=== PATIENT | female | born 1935 | race Two or more races ===

== ENCOUNTER 2017-05-18 12:20 | Inpatient (IN) | payer MEDICARE, MEDICAID ==
[~2017-05-18] VITALS: Ht 160 cm; Wt 77.1 kg
[~2017-05-18 12:20] MED LIST: ALPR0.5T PO; AMLO5TAB2 PO; ASPI-605 PO; ATEN25TA PO; CELE200C PO; CLON0.1T PO; DEXL60CA3 PO; DOCU-270 PO; ERGO50003 PO; LOSA100T15 PO; METO50TA3 PO; RANO500T3 PO; TRAM50TA2 PO; VALS320T2 PO
--- NOTE | 2017-05-18 12:30 | NUR ---
BIB DTR FROM HOME DT MID ABDOMINAL PAIN, 5/10, NON RADIATING SINCE THIS AM. LAST BOWEL MOVEMENT THIS AM. DENIES NAUSEA AND VOMITTING. SKIN IS WARM TO TOUCH AND NON DIAPHORETIC. PATIENT IS AFEBRILE. VSS. CONNCTED PATIENT TO TELE MONITOR.PENDING MD EVALUATION
[2017-05-18] MEDS ORDERED: IV NS 0.9% 1,000 ML BAG IV ONE (13:00)
--- NOTE | 2017-05-18 13:15 | NUR ---
IV ACCESS STARTED. PT MEDICATED ORDERED.
[2017-05-18] MEDS ORDERED: ONDANSETRON HCL/PF 4 MG/2 ML VIAL ONE ×2 (13:24→22:32)
[2017-05-18] MEDS ORDERED: MORPHINE SULFATE INJ 4 MG/ML DISP.SYRIN ONE ×2 (13:25→14:27)
[2017-05-18 13:29] LABS: BASOPHILS % (AUTO) 0.4 % (0.0-2.0); EOSINOPHILS % (AUTO) 0.2 % (0.0-6.0); HEMATOCRIT 37 % (33-45); HEMOGLOBIN 12.6 g/dL (11.5-14.8); LYMPHOCYTES # (AUTO) 0.9 /CMM (0.8-4.8); MEAN CORPUSCULAR HEMOGLOBIN 30 PG (26.0-33.0); MEAN CORPUSCULAR HGB CONC 34 g/dl (31.0-36.0); MEAN CORPUSCULAR VOLUME 90 fL (82-100); MONOCYTES # (AUTO) 0.5 /CMM (0.1-1.30); MONOCYTES % (AUTO) 10.7 % (2.0-12.0); NEUTROPHILS # (AUTO) 3.3 /CMM (1.8-8.9); NEUTROPHILS % (AUTO) 68.7 % (43.0-81.0); PLATELET COUNT (AUTO) 177 /CMM (150-450); RDW COEFFICIENT OF VARIATION 13.4 (11.5-15.0); RED BLOOD CELL COUNT(AUTO) 4.16 MIL/uL (4.0-5.2); WHITE BLOOD COUNT (AUTO) 4.7 K/uL (4.3-11.0)
[2017-05-18 13:30] LABS: APPEARANCE,URINE Clear (CLEAR); BILIRUBIN,URINE Negative (NEGATIVE); BLOOD, URINE Trace-lysed Ery/uL (NEGATIVE); COLOR,URINE Yellow (YELLOW); KETONES,URINE Negative (NEGATIVE); LEUKOCYTE ESTERASE ,URINE Negative (NEGATIVE); NITRITE, URINE Negative (NEGATIVE); PROTEIN,URINE Negative (NEGATIVE); UGLUCOSE Negative (NEGATIVE); UROBILINOGEN,URINE 0.2 EU/dL (0.2)
[2017-05-18] MEDS ORDERED: ONDANSETRON HCL/PF 4 MG/2 ML VIAL IVP ONE (13:30)
[2017-05-18] MEDS ORDERED: MORPHINE SULFATE INJ 2 MG/ML DISP.SYRIN IV ONE ×2 (13:30→14:30)
[2017-05-18 13:37] LABS: BACTERIA,URINE None seen /HPF (None Seen); RBC,URINE 0-2 /HPF (0-2); SQUAMOUS EPITHELIAL CELL,UR Few /HPF (None Seen); WBC,URINE 0-3 /HPF (0-3)
[2017-05-18 13:37] LABS: CALCIUM, SERUM 9.1 mg/dL (8.5-10.1); CARBON DIOXIDE 29 mmol/L (21-32); CHLORIDE 104 mmol/L (98-107); GLUCOSE 87 mg/dL (74-106); POTASSIUM 4.3 mmol/L (3.5-5.1); SODIUM SERUM 141 mmol/L (136-145); UREA NITROGEN, BLOOD 37 mg/dL (7-18)
--- NOTE | 2017-05-18 13:40 | NUR ---
PT TAKEN TO CT.
[2017-05-18 13:42] LABS: INR 1.01 (0.87-1.13); PROTHROMBIN TIME 10.5 SECS (9.5-12.7)
[2017-05-18 13:44] LABS: ALANINE AMINOTRANSFERASE 16 U/L (12-78); ALKALINE PHOSPHATASE 64 U/L (46-116); ASPARTATE AMINOTRANSFERASE 23 U/L (15-37); BILIRUBIN,DIRECT 0.1 mg/dL (0.0-0.2); BILIRUBIN,TOTAL 0.4 mg/dL (0.2-1.0); LIPASE 212 U/L (73-393); TOTAL PROTEIN, SERUM 7.1 g/dL (6.4-8.2)
[2017-05-18] MEDS ORDERED: FLUT1DIS3 IH (16:03)
[2017-05-18] MEDS ORDERED: AZEL6DRO5 EACHEYE (16:03)
[2017-05-18] MEDS ORDERED: MEMA28CA PO (16:03)
[2017-05-18] MEDS ORDERED: RIVA1PAT3 TP (16:03)
[2017-05-18] MEDS ORDERED: AMIO200T2 PO (16:03)
[2017-05-18] MEDS ORDERED: FURO40TA5 PO (16:03)
[2017-05-18] MEDS ORDERED: GABA-532 PO (16:03)
[2017-05-18] MEDS ORDERED: ZOLP10TA2 PO (16:03)
[2017-05-18] MEDS ORDERED: ICOS1CAP PO (16:03)
[2017-05-18] MEDS ORDERED: IBAN150T PO (16:03)
[2017-05-18] MEDS ORDERED: LINA145C PO (16:03)
[2017-05-18] MEDS ORDERED: NITR0.4T6 SL (16:03)
[2017-05-18] MEDS ORDERED: PANTOPRAZOLE 40 MG VIAL ONE (16:27)
[2017-05-18] MEDS ORDERED: PANTOPRAZOLE 40 MG VIAL IV ONE (16:30)
--- NOTE | 2017-05-18 16:39 | NUR ---
REPORT GIVEN TO ANNABELLE JIN FOR MS ROOM 309-1.
[2017-05-18 17:00] VITALS: BP 141/82
--- NOTE | 2017-05-18 17:00 | NUR ---
MS MATERIAL CONTROL ASSOCIATE NOTE PATIENT IS ALERT AND ORIENTED x3. NO PAIN AT THIS TIME. NO SOB OR DISTRESS NOTED, 02 SAT AT 93% ON ROOM AIR. DAUGHTER AT BEDSIDE. PORTUGUESE/UZBEK SPEAKING. AMBULATORY WITH WALKER. LEFT AC 20 G INTACT AND PATENT NO REDNESS OR SWELLING NOTED, FLUSHES WELL. ABLE TO COMMUNICATE NEEDS. ALL BELONGINGS WITH DAUGHTER. SHOES AT BEDSIDE & CELL-PHONE, AND DOCUMENTED. PRESENTED TO THE ER WITH ABDOMINAL PAIN FOR MORE THAN A WEEK. VITAL SIGNS - AGENCY SALES DIRECTOR: 141/82, T:98.4, 02:93%, P:70. CALL LIGHT WITHIN REACH. SAFETY MEASURES IMPLEMENTED. WILL CONTINUE TO MONITOR
[2017-05-18] MEDS ORDERED: IV NS 0.9% 1,000 ML IV PRN (19:00)
--- NOTE | 2017-05-18 19:00 | NUR ---
RN NOTE REPORTED TO PHARMACY PT.'S DAUGHTER SAID THAT SHE WILL NOT BE ABLE TO PROVIDE PT.'S HOME MEDICATIONS.
--- NOTE | 2017-05-18 19:00 | NUR ---
RN NOTES PATIENT IN BED, ALERT AND ORIENTED X3, CALM, NO SOB, NO RESPIRATORY DISTRESS, KINYARWANDA SPEAKING, UNDERSTANDS LITTLE DIVEHI. LEFT AC PERIPHERAL LINE IS PATENT AND INFUSING WELL. PER ENDORSEMENT, FOR EGD TONIGHT, CONSENTS AND CHECKLIST DONE, SISTER AT THE BEDSIDE.
--- NOTE | 2017-05-18 19:30 | NUR ---
RN CLOSING NOTE PATIENT IS A&Ox3. DAUGHTER AT BEDSIDE. GERMAN/DOMINICAN SPEAKING. PT. WAS SEEN AND EXAMINED BY DR. DOSS, AND DR. ASH. PER DR. DOSS EGD WAS RECOMMENDED. PT.'S DAUGHTER WAS PROVIDED EDUCATION ON EGD PROCEDURE, VERBALIZED UNDERSTANDING AND GAVE CONSENT. SIGNED CONSENT IS IN PT. CHART. NO S/S OF ACUTE DISTRESS. NO SOB, AND BREATHING UNLABORED ON ROOM AIR. AMBULATORY WITH WALKER AT BEDSIDE. IV FLUIDS RUNNING AT 75 ML/HR. BED IS IN LOWEST POSITION, 2 SIDE RAILS UP AND CALL LIGHT WITHIN REACH. WILL ENDORSE PT. SURGICAL PACKET CHECKLIST TO NURSE.
--- NOTE | 2017-05-18 19:45 | NUR ---
PATIENT PICKED UP FOR EGD. ALERT AND ORIENTED X3, NO SOB, NOT IN DISTRESS.
[2017-05-18 20:00] VITALS: BP 179/92
--- NOTE | 2017-05-18 20:48 | NUR ---
RN NOTES PATIENT CAME BACK FROM EGD PROCEDURE IN STABLE CONDITION WITH V/S OF 151/90 HR 75 TEMP 98.6 RR 18. COMPLAINING OF ABDOMINAL DISCOMFORT. RECEIVED NEW ORDER OF PROTONIX 40 MG PO QD AND ADVANCED DIET TOLERATED, ON CLEAR LIQUID DIET FOR NOW. GIVEN SIPS OF WATER, TOLERATED WELL.
[2017-05-18] MEDS: AZELASTINE HCL EACHEYE SCH (21:00)
[2017-05-18] MEDS ORDERED: ACETAMINOPHEN 325 MG TABLET PO PRN (22:30)
[2017-05-18] MEDS ORDERED: ACETAMINOPHEN 325 MG TABLET ONE (22:32)
[2017-05-18] MEDS: ONDANSETRON HCL/PF 4 MG/2 ML VIAL IV PRN (22:35)
--- NOTE | 2017-05-18 23:00 | NUR ---
RN NOTES GRAND DAUGHTER AT THE BEDSIDE, PER TRANSLATION, PATIENT COMPLAINING OF ESOPHAGEAL DISCOMFORT. EXPLAINED TO PATIENT VIA GRAND DAUGHTER HAD EGD AT 1930, ESOPHAGEAL DISCOMFORT IS EXPECTED. REPOSITIONED FOR COMFORT, CALL LIGHT WITHIN REACH.
--- NOTE | 2017-05-19 01:09 | NUR ---
RN NOTES COMPLAINING OF HEADACHE AND NAUSEA. NOTIFIED DR. TUTTLE, NEW ORDER OF TYLENOL 650 MG PO Q6HRS PRN AND ZOFRAN 4 MG IVP Q4HRS PRN.
[2017-05-19] MEDS ORDERED: SIMETHICONE 80 MG TAB.CHEW PO PRN (02:30)
[2017-05-19] MEDS ORDERED: ONDANSETRON HCL/PF 4 MG/2 ML VIAL ONE (03:34)
[2017-05-19] MEDS: ONDANSETRON HCL/PF 4 MG/2 ML VIAL IV PRN ×2 (03:36→09:07)
--- NOTE | 2017-05-19 03:39 | NUR ---
RN NOTES COMPLAINING OF NAUSEA, GIVEN ZOFRAN 4 MG IVP PRN, KEPT ON HIGH MEDINA'S, REPOSITIONED FOR COMFORT.
--- NOTE | 2017-05-19 05:05 | NUR ---
PATIENT IS RESTING COMFORTABLY AFTER ZOFRAN GIVEN,
--- NOTE | 2017-05-19 06:48 | NUR ---
PATIENT RESTING COMFORTABLY IN BED, NO DISTRESS, RESPIRATION EVEN AND UNLABORED, NO COMPLAIN OF ABDOMINAL PAIN, AND N/V, GIVEN ZOFRAN 4MG IVP X2 DURING SHIFT, ASSISTED TO BATHROOM, LEFT AC PERIPHERAL LINE IS PATENT AND INFUSING WELL, NEEDS ATTENDED, CALL LIGHT WITHIN REACH
[2017-05-19] MEDS ORDERED: PANTOPRAZOLE 40 MG TABLET.DR PO SCH (07:30)
--- NOTE | 2017-05-19 08:00 | NUR ---
MS RN NOTES PATIENT IN BED RESTING NO SOB OR ACUTE DISTRESS NOTED. BED IN LOW LOCKED POSITION. CALL LIGHT WITHIN REACH. PERIPHERAL IV ON LEFT AC INTACT PATENT. RUNNING PRESCRIBED FLUIDS. PATIENT DENIES ANY NAUSEA AT THIS MOMENT. WILL CONTINUE TO MONITOR.
[2017-05-19] MEDS ORDERED: MEMANTINE HCL 5 MG TABLET PO SCH (09:00)
[2017-05-19] MEDS ORDERED: CLONIDINE HCL 0.1 MG TABLET PO SCH (09:00)
[2017-05-19] MEDS ORDERED: ALPRAZOLAM 0.5 MG TABLET PO SCH (09:00)
[2017-05-19] MEDS ORDERED: (Linaclotide (Linzess) 145 MCG) PO SCH (09:00)
[2017-05-19] MEDS ORDERED: AMIODARONE HCL 200 MG TABLET PO SCH (09:00)
[2017-05-19] MEDS: AZELASTINE HCL EACHEYE SCH (09:00)
[2017-05-19] MEDS ORDERED: RIVASTIGMINE TARTRATE 4.6 MG PATCH.TD24 TD SCH (09:00)
[2017-05-19] MEDS ORDERED: (Icosapent Ethyl (Vascepa) 2 GM) PO SCH (09:00)
[2017-05-19] MEDS ORDERED: DEXLANSOPRAZOLE 60 MG PO SCH (09:00)
[2017-05-19] MEDS ORDERED: FLUTICASONE/VILANTEROL 1 EACH BLST.W.DEV IH SCH (09:00)
[2017-05-19 10:00] VITALS: BP 147/76
[2017-05-19] MEDS ORDERED: ONDA4TAB8 SL (10:12)
--- NOTE | 2017-05-19 11:00 | NUR ---
MS RN NOTES PATIENT SEEN AND EVALUATED BY [employer] RAMOS DATA ADMINISTRATOR ORDERS NOTED AND CARRIED OUT. PATIENT AND DAUGHTER VERBALIZES DESIRE FOR DISCHARGE.
--- NOTE | 2017-05-19 11:30 | NUR ---
MS RN NOTES PATIENT DISCHARGED HOME WITH DAUGHTER. MD AWARE OF ALL ABNORMAL LABS. BP RECHECKED NOTED 134/70 PULSE 72. DISCHARGE TEACHING PROVIDED TO PATIENT AND DAUGHTER, VERBALIZED UNDERSTANDING. DISCHARGE PROTOCOL FOLLOWED. ALL BELONGINGS ACCOUNTED FOR, BELONGING LIST SIGNED. PRESCRIPTION PROVIDED TO PATIENT, TEACHING PROVIDED ON DIET AND MEDICATION. PERIPHERAL IV REMOVED WITH MINIMAL BLEEDING. ID BAND ALSO REMOVED. ESCORTED TO CAR BY CLINICAL ABSTRACTOR.
== END 2017-05-19 11:29 | disposition home or self-care (01) | DRG 392 ==
LOC: ER 12:22 → MED 17:31
PROVIDERS: ADMIT Internal Medicine; ATTEND Internal Medicine
PROC: 0DB68ZX Excision of Stomach, Via Natural or Artificial Opening Endoscopic, Diagnostic (ICD-10-PCS; 2017-05-18)
PROC: 0DB48ZX Excision of Esophagogastric Junction, Via Natural or Artificial Opening Endoscopic, Diagnostic (ICD-10-PCS; principal; 2017-05-18 19:55)
DX: K29.70 Gastritis, unspecified, without bleeding (principal); I13.0 Hypertensive heart and chronic kidney disease with heart failure and stage 1 through stage 4 chronic kidney disease, or unspecified chronic kidney disease; I50.32 Chronic diastolic (congestive) heart failure; K20.9 Esophagitis, unspecified; N18.9 Chronic kidney disease, unspecified; E66.9 Obesity, unspecified; I25.10 Atherosclerotic heart disease of native coronary artery without angina pectoris; J45.909 Unspecified asthma, uncomplicated; R13.10 Dysphagia, unspecified; Z68.30 Body mass index [BMI] 30.0-30.9, adult; R79.89 Other specified abnormal findings of blood chemistry
CPT/HCPCS: 36415; 71250-TC; 80048-TC; 80076-TC; 81000-TC; 83690-TC; 85025-TC; 85730-TC; 87081-TC; 87086-TC; 88305-TC; 88313-TC; 88342; A4606; C9113; J2270; J2405; J2704; J3490; J7030; Z7610

== ENCOUNTER 2017-10-18 14:30 | Emergency (ER) | payer MEDICARE, MEDICAID ==
[~2017-10-18] VITALS: Ht 160 cm; Wt 63.5 kg
[~2017-10-18 14:30] MED LIST changes: +AMIO200T2 PO; -AMLO5TAB2 PO; -ATEN25TA PO; +AZEL6DRO5 EACHEYE; -CELE200C PO; -DOCU-270 PO; +ERGO500014 PO; -ERGO50003 PO; +FLUT1DIS3 IH; +GABA-532 PO; +IBAN150T PO; +ICOS1CAP PO; +LINA145C PO; +MEMA28CA PO; -METO50TA3 PO; +NITR0.4T48 SL; +ONDA4TAB8 SL; -RANO500T3 PO; +RIVA1PAT3 TP; -VALS320T2 PO; +ZOLP10TA2 PO
--- NOTE | 2017-10-18 14:45 | NUR ---
BIB DTR C/O CHEST PAIN AND ABDOMINAL PAIN SINCE YESTERDAY. PATIENT IS A/XO 4. BREATHING EVEN AND UNLABORED. NO SOB, NAD. PATIENT IS HYPERTENSIVE, SKIN WARM AND DRY. SAFETY AND COMFORT MEASURES IN PLACE. MD AT BEDSIDE FOR EVAL.
[2017-10-18] MEDS ORDERED: ASPIRIN 325 MG TABLET ONE (14:49)
[2017-10-18] MEDS ORDERED: ONDANSETRON HCL/PF 4 MG/2 ML VIAL ONE (14:49)
--- NOTE | 2017-10-18 14:50 | NUR ---
NEW IV STARTED ON LAC, 20 G. BLOOD DRAWN AND SENT TO LAB .
[2017-10-18] MEDS ORDERED: NITROGLYCERIN PACKET 1 GM PACKET ONE (14:51)
[2017-10-18 14:52] LABS: BASOPHILS % (AUTO) 0.3 % (0.0-2.0); EOSINOPHILS % (AUTO) 0.1 % (0.0-6.0); HEMATOCRIT 38 % (33-45); HEMOGLOBIN 13.1 g/dL (11.5-14.8); LYMPHOCYTES # (AUTO) 0.9 /CMM (0.8-4.8); LYMPHOCYTES % (AUTO) 19.3 % (20.0-44.0); MEAN CORPUSCULAR HEMOGLOBIN 32 PG (26.0-33.0); MEAN CORPUSCULAR HGB CONC 35 g/dl (31.0-36.0); MEAN CORPUSCULAR VOLUME 91 fL (82-100); MONOCYTES # (AUTO) 0.4 /CMM (0.1-1.30); MONOCYTES % (AUTO) 9.5 % (2.0-12.0); NEUTROPHILS # (AUTO) 3.2 /CMM (1.8-8.9); NEUTROPHILS % (AUTO) 70.8 % (43.0-81.0); PLATELET COUNT (AUTO) 202 /CMM (150-450); RDW COEFFICIENT OF VARIATION 12.9 (11.5-15.0); RED BLOOD CELL COUNT(AUTO) 4.11 MIL/uL (4.0-5.2); WHITE BLOOD COUNT (AUTO) 4.5 K/uL (4.3-11.0)
[2017-10-18] MEDS ORDERED: ONDANSETRON HCL/PF 4 MG/2 ML VIAL IVP ONE (15:00)
[2017-10-18] MEDS ORDERED: IV NS 0.9% 500 ML BAG IV ONE (15:00)
[2017-10-18] MEDS ORDERED: NITROGLYCERIN PACKET 1 GM PACKET TD ONE (15:00)
[2017-10-18] MEDS ORDERED: ASPIRIN 325 MG TABLET PO ONE (15:00)
[2017-10-18 15:03] LABS: CALCIUM, SERUM 9.8 mg/dL (8.5-10.1); CARBON DIOXIDE 25 mmol/L (21-32); CHLORIDE 104 mmol/L (98-107); CREATININE 2.3 mg/dL (0.6-1.3); GLUCOSE 94 mg/dL (74-106); POTASSIUM 3.8 mmol/L (3.5-5.1); SODIUM SERUM 139 mmol/L (136-145); UREA NITROGEN, BLOOD 26 mg/dL (7-18)
[2017-10-18 15:08] LABS: INR 1.02 (0.85-1.15)
[2017-10-18 15:10] LABS: ALANINE AMINOTRANSFERASE 13 U/L (12-78); ALBUMIN 4.1 g/dL (3.4-5.0); ALKALINE PHOSPHATASE 59 U/L (46-116); ASPARTATE AMINOTRANSFERASE 21 U/L (15-37); BILIRUBIN,DIRECT 0.1 mg/dL (0.0-0.2); BILIRUBIN,TOTAL 0.6 mg/dL (0.2-1.0); TOTAL PROTEIN, SERUM 7.4 g/dL (6.4-8.2)
[2017-10-18 15:12] LABS: TROPONIN I < 0.017 ng/mL (0.00-0.056)
[2017-10-18] MEDS ORDERED: FURO40TA5 PO (15:13)
--- NOTE | 2017-10-18 15:40 | NUR ---
PATIENT TAKEN TO CT VIA STRETCHER.
--- NOTE | 2017-10-18 15:52 | NUR ---
patient returned from ct in stable condition.
--- NOTE | 2017-10-18 16:08 | NUR ---
PAGED EPIC FOR PANEL
--- NOTE | 2017-10-18 16:10 | NUR ---
CALLED NURSE SUP FOR TELE BED
--- NOTE | 2017-10-18 16:10 | NUR ---
URINE OBTAINED AND SENT TO LAB.
--- NOTE | 2017-10-18 16:30 | NUR ---
PATIENT DENIES ANY CHEST PAIN, STATING FEELING FINE TO GO HOME, MD INFORMED.
[2017-10-18 16:59] VITALS: BP 156/72
[2017-10-18] MEDS ORDERED: GABAPENTIN 100 MG CAPSULE PO SCH (17:00)
[2017-10-18] MEDS ORDERED: CLONIDINE HCL 0.1 MG TABLET PO SCH (17:00)
--- NOTE | 2017-10-18 17:00 | NUR ---
IV removed. Catheter intact and site benign. Pressure and 4x4 applied to site. No bleeding noted. Patient discharged to home in stable condition. Written and verbal after care instructions given. Patient verbalizes understanding of instruction.
[2017-10-18 17:12] LABS: APPEARANCE,URINE Slightly Cloudy (CLEAR); BILIRUBIN,URINE Negative (NEGATIVE); BLOOD, URINE Trace-intact Ery/uL (NEGATIVE); COLOR,URINE Yellow (YELLOW); KETONES,URINE Negative (NEGATIVE); LEUKOCYTE ESTERASE ,URINE Negative (NEGATIVE); NITRITE, URINE Negative (NEGATIVE); PROTEIN,URINE Negative (NEGATIVE); UGLUCOSE Negative (NEGATIVE); UROBILINOGEN,URINE 0.2 EU/dL (0.2)
[2017-10-18 17:24] LABS: BACTERIA,URINE FEW /HPF (None Seen); RBC,URINE 0-2 /HPF (0-2); SQUAMOUS EPITHELIAL CELL,UR FEW /HPF (None Seen); WBC,URINE 0-2 /HPF (0-3)
[2017-10-19] MEDS ORDERED: Medication Not On Formulary EA (Losartan Potassium 100 MG) PO SCH (09:00)
[2017-10-19] MEDS ORDERED: AMIODARONE HCL 200 MG TABLET PO SCH (09:00)
[2017-10-19] MEDS ORDERED: FUROSEMIDE 40 MG TABLET PO SCH (09:00)
[2017-10-19] MEDS ORDERED: ALPRAZOLAM 0.5 MG TABLET PO SCH (09:00)
== END 2017-10-18 17:00 | disposition home or self-care (01) ==
LOC: ER 14:31
DX: R07.2 Precordial pain (principal); R10.33 Periumbilical pain; I10 Essential (primary) hypertension; Z79.82 Long term (current) use of aspirin; Z90.89 Acquired absence of other organs
CPT/HCPCS: 36415; 74176; 80048; 80076; 81001; 83690; 84484; 85025; 85730; 87081; 93005; 96374; 99285; A4606; J2405; J7040; 81000-TC; Z7610

== ENCOUNTER 2018-06-06 18:14 | Emergency (ER) | payer MEDICARE, MEDICAID ==
[~2018-06-06] VITALS: Ht 152.4 cm; Wt 68.0 kg
[~2018-06-06 18:14] MED LIST changes: -AMIO200T2 PO; +AMIO200T4 PO; -ASPI-605 PO; -AZEL6DRO5 EACHEYE; -FLUT1DIS3 IH; +FURO40TA5 PO; -IBAN150T PO; -ICOS1CAP PO; -LINA145C PO; -MEMA28CA PO; -NITR0.4T48 SL; -ONDA4TAB8 SL; -RIVA1PAT3 TP; -TRAM50TA2 PO
--- NOTE | 2018-06-06 18:16 | NUR ---
JOSEPH FROM HOME DT GENERALIZED WEAKNESS,. CHEST PAIN AND ABDOMINAL PAIN X 3 DAYS WORST TODAY. PATIENT IS AWAKE AND ALERT. IN NO APPARENT DISTRESS. RESPIRATION EVEN AND UNLABORED. NO SOB NOTED. SKIN IS WARM TO TOUCH AND NON DIAPHORETIC. AFEBRILE. GOWNED PT AND PLACED ON TELE MONITOR. VSS.
--- NOTE | 2018-06-06 18:31 | NUR ---
PATIENT NOTED WITH IV ACCESSED TO LEFT WRIST G20, FLUSHING WITH NO RESISTANCE.
[2018-06-06 18:39] LABS: BASOPHILS % (AUTO) 0.2 % (0.0-2.0); EOSINOPHILS % (AUTO) 0.1 % (0.0-6.0); HEMATOCRIT 36 % (33-45); HEMOGLOBIN 12.3 g/dL (11.5-14.8); LYMPHOCYTES # (AUTO) 0.7 /CMM (0.8-4.8); LYMPHOCYTES % (AUTO) 17.4 % (20.0-44.0); MEAN CORPUSCULAR HGB CONC 35 g/dl (31.0-36.0); MEAN CORPUSCULAR VOLUME 92 fL (82-100); MONOCYTES # (AUTO) 0.5 /CMM (0.1-1.30); MONOCYTES % (AUTO) 11.2 % (2.0-12.0); NEUTROPHILS # (AUTO) 2.9 /CMM (1.8-8.9); NEUTROPHILS % (AUTO) 71.1 % (43.0-81.0); PLATELET COUNT (AUTO) 162 /CMM (150-450); RDW COEFFICIENT OF VARIATION 12.7 (11.5-15.0); RED BLOOD CELL COUNT(AUTO) 3.86 MIL/uL (4.0-5.2); WHITE BLOOD COUNT (AUTO) 4.1 K/uL (4.3-11.0)
[2018-06-06 18:48] LABS: CALCIUM, SERUM 9.3 mg/dL (8.5-10.1); CARBON DIOXIDE 29 mmol/L (21-32); CHLORIDE 107 mmol/L (98-107); CREATININE 2.2 mg/dL (0.6-1.3); GLUCOSE 106 mg/dL (74-106); POTASSIUM 4.3 mmol/L (3.5-5.1); SODIUM SERUM 140 mmol/L (136-145); UREA NITROGEN, BLOOD 31 mg/dL (7-18)
[2018-06-06 18:49] LABS: INR 1.02 (0.85-1.15)
[2018-06-06 18:53] LABS: ALANINE AMINOTRANSFERASE 19 U/L (12-78); ALBUMIN 3.9 g/dL (3.4-5.0); ALKALINE PHOSPHATASE 57 U/L (46-116); ASPARTATE AMINOTRANSFERASE 18 U/L (15-37); BILIRUBIN,DIRECT 0.1 mg/dL (0.0-0.2); BILIRUBIN,TOTAL 0.5 mg/dL (0.2-1.0); LIPASE 161 U/L (73-393); TOTAL PROTEIN, SERUM 6.7 g/dL (6.4-8.2)
[2018-06-06 19:00] LABS: TROPONIN I < 0.017 ng/mL (0.00-0.056)
--- NOTE | 2018-06-06 19:18 | NUR ---
RECEIVED REPORT FROM ANNABEL POWELL FOR [facility]. PT RESTING IN BED WITH NO S/S OF DISTRESS NOTED. WILL CONTINUE TO MONITOR PT.
[2018-06-06 19:48] LABS: APPEARANCE,URINE Clear (CLEAR); BILIRUBIN,URINE Negative (NEGATIVE); BLOOD, URINE Trace-lysed Ery/uL (NEGATIVE); COLOR,URINE Yellow (YELLOW); KETONES,URINE Negative (NEGATIVE); LEUKOCYTE ESTERASE ,URINE Negative (NEGATIVE); NITRITE, URINE Negative (NEGATIVE); PROTEIN,URINE Negative (NEGATIVE); UGLUCOSE Negative (NEGATIVE); UROBILINOGEN,URINE 0.2 EU/dL (0.2)
[2018-06-06 19:51] LABS: BACTERIA,URINE Few /HPF (None Seen); RBC,URINE 0-2 /HPF (0-2); SQUAMOUS EPITHELIAL CELL,UR Few /HPF (None Seen); WBC,URINE 0-2 /HPF (0-3)
[2018-06-06] MEDS ORDERED: ASPIRIN 81 MG TAB.CHEW PO ONE (20:00)
[2018-06-06] MEDS ORDERED: MAG HYDROX/AL HYDROX/SIMETH 30 ML UDC PO ONE (20:00)
[2018-06-06] MEDS ORDERED: FAMOTIDINE/PF INJ 20 MG/2 ML VIAL IV ONE ×2 (20:00→20:10)
[2018-06-06] MEDS ORDERED: ASPIRIN 81 MG TAB.CHEW ONE (20:09)
[2018-06-06] MEDS ORDERED: MAG HYDROX/AL HYDROX/SIMETH 30 ML UDC ONE (20:09)
[2018-06-06 20:20] VITALS: BP 138/84
--- NOTE | 2018-06-06 20:20 | NUR ---
Patient discharged to home in stable condition. Written and verbal after care instructions given. Patient verbalizes understanding of instruction.IV removed. Catheter intact and site benign. Pressure and 4x4 applied to site. No bleeding noted. NO S/S OF DISTRESS NOTED UPON DISCHARGE. PT AMBULATED WITH STEADY GAIT NOTED.
== END 2018-06-06 20:21 | disposition home or self-care (01) ==
LOC: ER 18:16
DX: I13.0 Hypertensive heart and chronic kidney disease with heart failure and stage 1 through stage 4 chronic kidney disease, or unspecified chronic kidney disease (principal); N18.9 Chronic kidney disease, unspecified; R10.13 Epigastric pain; R07.89 Other chest pain; R53.83 Other fatigue; R22.1 Localized swelling, mass and lump, neck; F41.9 Anxiety disorder, unspecified; I49.8 Other specified cardiac arrhythmias; Z90.89 Acquired absence of other organs; Z60.2 Problems related to living alone
CPT/HCPCS: 36415; 71045; 80048; 80076; 81001; 83690; 83880; 84484; 85025; 85730; 93005; 96374; 99285; A4606; J3490; 81000-TC; Z7610

== ENCOUNTER 2018-11-18 10:48 | Emergency (ER) | payer MEDICARE, MEDICAID ==
[~2018-11-18] VITALS: Ht 160 cm; Wt 74.8 kg
[~2018-11-18 10:48] MED LIST changes: -LOSA100T15 PO; +LOSA100T31 PO
--- NOTE | 2018-11-18 10:48 | NUR ---
PT BIB DAUGHTER C/O WORSENING L KNEE PAIN X 2 DAYS, SOB, WHEEZING STATES WORST W/ KNEE PAIN, PT IS AAOX3 ARMANIAN SPEAKING ONLY, NOT IN RESPIRATORY DISTRESS, V/S STABLE, KEPT RESTED AND COMFORTABLE.
--- NOTE | 2018-11-18 11:10 | NUR ---
PT SEEN AND EXAMINED BY DR. FARLEY.
--- NOTE | 2018-11-18 11:15 | NUR ---
IV LINE ESTABLISHED. LABS DRAWNED AND SENT TO LAB.
[2018-11-18] MEDS ORDERED: DEXAMETHASONE SOD PHOSPHATE 10 MG/ML VIAL ONE (11:19)
[2018-11-18] MEDS ORDERED: HYDROCODONE/APAP 5/325MG 1 EACH TABLET ONE (11:20)
[2018-11-18 11:23] LABS: BASOPHILS % (AUTO) 0.1 % (0.0-2.0); HEMATOCRIT 35 % (33-45); HEMOGLOBIN 11.9 g/dL (11.5-14.8); LYMPHOCYTES # (AUTO) 0.5 /CMM (0.8-4.8); MEAN CORPUSCULAR HGB CONC 34 g/dl (31.0-36.0); MEAN CORPUSCULAR VOLUME 96 fL (82-100); MONOCYTES # (AUTO) 0.3 /CMM (0.1-1.30); MONOCYTES % (AUTO) 9.7 % (2.0-12.0); NEUTROPHILS # (AUTO) 1.9 /CMM (1.8-8.9); NEUTROPHILS % (AUTO) 71.2 % (43.0-81.0); PLATELET COUNT (AUTO) 129 /CMM (150-450); RED BLOOD CELL COUNT(AUTO) 3.71 MIL/uL (4.0-5.2); WHITE BLOOD COUNT (AUTO) 2.7 K/uL (4.3-11.0)
[2018-11-18] MEDS ORDERED: IPRATROPIUM NEB FS 0.5 MG/2.5 ML AMPUL.NEB ONE (11:27)
[2018-11-18] MEDS ORDERED: ALBUTEROL FS 2.5 MG/3 ML VIAL.NEB ONE (11:27)
[2018-11-18 11:28] LABS: CALCIUM, SERUM 8.4 mg/dL (8.5-10.1); CARBON DIOXIDE 29 mmol/L (21-32); CHLORIDE 109 mmol/L (98-107); CREATININE 1.9 mg/dL (0.6-1.3); GLUCOSE 111 mg/dL (74-106); POTASSIUM 4.5 mmol/L (3.5-5.1); SODIUM SERUM 144 mmol/L (136-145); UREA NITROGEN, BLOOD 33 mg/dL (7-18)
[2018-11-18] MEDS ORDERED: IPRATROPIUM NEB FS 0.5 MG/2.5 ML AMPUL.NEB NEB ONE (11:30)
[2018-11-18] MEDS ORDERED: ALBUTEROL FS 2.5 MG/3 ML VIAL.NEB NEB ONE (11:30)
[2018-11-18] MEDS ORDERED: HYDROCODONE/APAP 5/325MG 1 EACH TABLET PO ONE (11:30)
[2018-11-18] MEDS ORDERED: DEXAMETHASONE SOD PHOSPHATE 10 MG/ML VIAL IV ONE (11:30)
--- NOTE | 2018-11-18 11:33 | NUR ---
RT NOTE: PATIENT REFUSED BREATHING TREATMENT. STATES SHE FEELS THAT SHE DOES NOT NEED IT. AWARE.
--- NOTE | 2018-11-18 11:50 | NUR ---
SECURITY GUARD AT BEDSIDE FOR XRAY.
[2018-11-18 12:45] LABS: LYMPHOCYTES % (MANUAL) 16 % (16-48); MONOCYTES % (MANUAL) 3 % (0-11.0); NEUTROPHILS % (MANUAL) 81 (42-76)
[2018-11-18 12:53] VITALS: BP 135/87
== END 2018-11-18 13:13 | disposition home or self-care (01) ==
LOC: ER 10:52
DX: M17.12 Unilateral primary osteoarthritis, left knee (principal); F41.9 Anxiety disorder, unspecified; J45.909 Unspecified asthma, uncomplicated; I12.9 Hypertensive chronic kidney disease with stage 1 through stage 4 chronic kidney disease, or unspecified chronic kidney disease; N18.9 Chronic kidney disease, unspecified; D72.819 Decreased white blood cell count, unspecified; D69.6 Thrombocytopenia, unspecified; Z96.651 Presence of right artificial knee joint; Z90.89 Acquired absence of other organs; Z60.2 Problems related to living alone
CPT/HCPCS: 36415; 71045; 73564; 80048; 85025; 93005; 96374; 99284; A4606; J1100

== ENCOUNTER 2020-12-18 11:06 | Emergency (ER) | payer MEDICARE, MEDICAID ==
[~2020-12-18] VITALS: Ht 160 cm; Wt 80.7 kg
[~2020-12-18 11:06] MED LIST changes: -AMIO200T4 PO; +AMIO200T5 PO
--- NOTE | 2020-12-18 11:15 | NUR ---
ABDOMINAL PAIN/NAUSEA AND VOMITING X 3 DAYS. Patient a/ox3, breathing even and unlabored, no sob noted. needs attended. Kept comfortable.
--- NOTE | 2020-12-18 11:20 | NUR ---
DR. YAP AT BEDSIDE FOR EVAL.
[2020-12-18] MEDS ORDERED: ONDANSETRON HCL/PF 4 MG/2 ML VIAL ONE (11:44)
[2020-12-18 11:55] LABS: BASOPHILS % (AUTO) 0.3 % (0.0-2.0); EOSINOPHILS % (AUTO) 0.2 % (0.0-6.0); HEMATOCRIT 40 % (33-45); HEMOGLOBIN 13.4 g/dL (11.5-14.8); LYMPHOCYTES # (AUTO) 1.1 /CMM (0.8-4.8); LYMPHOCYTES % (AUTO) 13.4 % (20.0-44.0); MEAN CORPUSCULAR HGB CONC 34 g/dl (31.0-36.0); MEAN CORPUSCULAR VOLUME 95 fL (82-100); MONOCYTES # (AUTO) 0.6 /CMM (0.1-1.30); MONOCYTES % (AUTO) 7.5 % (2.0-12.0); NEUTROPHILS # (AUTO) 6.7 /CMM (1.8-8.9); NEUTROPHILS % (AUTO) 78.6 % (43.0-81.0); PLATELET COUNT (AUTO) 289 /CMM (150-450); WHITE BLOOD COUNT (AUTO) 8.6 K/uL (4.3-11.0)
[2020-12-18] MEDS ORDERED: ONDANSETRON HCL/PF - ER 4 MG/2 ML VIAL IV ONE (12:00)
[2020-12-18] MEDS ORDERED: IV NS 0.9% 1,000 ML BAG IV ONE (12:00)
[2020-12-18 12:18] LABS: CALCIUM, SERUM 9.5 mg/dL (8.5-10.1); CARBON DIOXIDE 25 mmol/L (21-32); CHLORIDE 99 mmol/L (98-107); GLUCOSE 129 mg/dL (74-106); POTASSIUM 4.5 mmol/L (3.5-5.1); SODIUM SERUM 135 mmol/L (136-145); UREA NITROGEN, BLOOD 42 mg/dL (7-18)
[2020-12-18 12:22] LABS: ALANINE AMINOTRANSFERASE 21 U/L (12-78); ALKALINE PHOSPHATASE 57 U/L (46-116); ASPARTATE AMINOTRANSFERASE 18 U/L (15-37); BILIRUBIN,DIRECT 0.1 mg/dL (0.0-0.2); BILIRUBIN,TOTAL 0.5 mg/dL (0.2-1.0); LIPASE 125 U/L (73-393); TOTAL PROTEIN, SERUM 7.7 g/dL (6.4-8.2)
[2020-12-18] MEDS ORDERED: ONDA4TAB11 PO (13:22)
[2020-12-18] MEDS ORDERED: PANT20TA2 PO (13:22)
--- NOTE | 2020-12-18 13:48 | NUR ---
IV removed. Catheter intact and site benign. Pressure and 4x4 applied to site. No bleeding noted.Patient discharged to home in stable condition. Written and verbal after care instructions given. Patient verbalizes understanding of instruction.
[2020-12-18 13:49] VITALS: BP 150/96
== END 2020-12-18 13:49 | disposition home or self-care (01) ==
LOC: ER 11:08
DX: K29.70 Gastritis, unspecified, without bleeding (principal); I12.9 Hypertensive chronic kidney disease with stage 1 through stage 4 chronic kidney disease, or unspecified chronic kidney disease; N18.9 Chronic kidney disease, unspecified; F41.9 Anxiety disorder, unspecified; Z90.89 Acquired absence of other organs; Z60.2 Problems related to living alone; Z79.899 Other long term (current) drug therapy
CPT/HCPCS: 36415; 71045; 74176; 80048; 80076; 83690; 84484; 85025; 96361; 96374; 99285; J2405; J7030

== ENCOUNTER 2021-04-04 11:06 | Emergency (ER) | payer MEDICARE, OTHER ==
[~2021-04-04] VITALS: Ht 160 cm; Wt 79.4 kg
[~2021-04-04 11:06] MED LIST changes: +ONDA4TAB11 PO; +PANT20TA2 PO
--- NOTE | 2021-04-04 11:16 | NUR ---
The patient is [id number], from home, c/o nausea s/p covid exposure from family member tested positive today, no SOB, BS 105. The patient is alert and oriented x3. Denies pain. In room air and denies SOB. Respiration regular and unlabored. Attached to the monitor.
[2021-04-04] MEDS ORDERED: ICOS1CAP PO (11:35)
[2021-04-04] MEDS ORDERED: MELO-107 PO (11:35)
[2021-04-04] MEDS ORDERED: PANT20TA17 PO (11:35)
[2021-04-04 11:47] LABS: BASOPHILS % (AUTO) 0.2 % (0.0-2.0); HEMATOCRIT 34 % (33-45); HEMOGLOBIN 11.5 g/dL (11.5-14.8); LYMPHOCYTES # (AUTO) 0.8 K/uL (0.8-4.8); LYMPHOCYTES % (AUTO) 14.3 % (20.0-44.0); MEAN CORPUSCULAR HGB CONC 34 g/dl (31.0-36.0); MEAN CORPUSCULAR VOLUME 100 fL (82-100); MONOCYTES # (AUTO) 0.4 K/uL (0.1-1.30); MONOCYTES % (AUTO) 7.4 % (2.0-12.0); NEUTROPHILS # (AUTO) 4.6 K/uL (1.8-8.9); NEUTROPHILS % (AUTO) 78.1 % (43.0-81.0); PLATELET COUNT (AUTO) 162 K/uL (150-450); RED BLOOD CELL COUNT(AUTO) 3.42 MIL/uL (4.0-5.2); WHITE BLOOD COUNT (AUTO) 5.9 K/uL (4.3-11.0)
[2021-04-04 11:52] LABS: CALCIUM, SERUM 8.9 mg/dL (8.5-10.1); CARBON DIOXIDE 28 mmol/L (21-32); CHLORIDE 105 mmol/L (98-107); CREATININE 1.8 mg/dL (0.6-1.3); GLUCOSE 105 mg/dL (74-106); POTASSIUM 4.2 mmol/L (3.5-5.1); SODIUM SERUM 140 mmol/L (136-145); UREA NITROGEN, BLOOD 29 mg/dL (7-18)
[2021-04-04 12:02] LABS: ALANINE AMINOTRANSFERASE 9 U/L (12-78); ALBUMIN 3.9 g/dL (3.4-5.0); ALKALINE PHOSPHATASE 42 U/L (46-116); ASPARTATE AMINOTRANSFERASE 18 U/L (15-37); BILIRUBIN,DIRECT 0.1 mg/dL (0.0-0.2); BILIRUBIN,TOTAL 0.4 mg/dL (0.2-1.0); LIPASE 113 U/L (73-393); TOTAL PROTEIN, SERUM 6.8 g/dL (6.4-8.2)
--- NOTE | 2021-04-04 12:03 | NUR ---
COVIS SWABS DONE, URINE COLLECTED AND SENT TO THE LAB
[2021-04-04 12:12] LABS: BILIRUBIN,URINE Negative (NEGATIVE); COLOR,URINE YELLOW (YELLOW); LEUKOCYTE ESTERASE ,URINE Small (NEGATIVE); NITRITE, URINE Positive (NEGATIVE); PROTEIN,URINE Negative (NEGATIVE); UGLUCOSE Negative (NEGATIVE); UROBILINOGEN,URINE 0.2 EU/dL (0.2)
[2021-04-04 12:14] LABS: BACTERIA,URINE Few /HPF (None Seen); SQUAMOUS EPITHELIAL CELL,UR Few /HPF (None Seen)
--- NOTE | 2021-04-04 12:28 | NUR ---
AURELIO (GRAND DAUGHTER) [phone]
[2021-04-04] MEDS ORDERED: ONDANSETRON HCL/PF 4 MG/2 ML VIAL ONE (13:22)
--- NOTE | 2021-04-04 13:32 | NUR ---
ZOFRAN 4 MG IV ONCE PER DR DAMON. READ BACK, VERIFIED. NOTED AND CARRIED OUT.
[2021-04-04] MEDS ORDERED: ONDANSETRON HCL/PF 4 MG/2 ML VIAL IV ONE (14:00)
[2021-04-04] MEDS ORDERED: CEPHALEXIN MONOHYDRATE 500 MG CAPSULE PO ONE ×2 (14:30→14:51)
[2021-04-04] MEDS ORDERED: CEPH500C2 PO (14:32)
--- NOTE | 2021-04-04 14:49 | NUR ---
Patient discharged to home in stable condition with her daughter. Written and verbal after care instructions given. Patient verbalizes understanding of instruction.
[2021-04-04 14:52] VITALS: BP 134/88
== END 2021-04-04 14:52 | disposition home or self-care (01) ==
LOC: ER 11:15
DX: R53.1 Weakness (principal); Z20.822 Contact with and (suspected) exposure to COVID-19; N39.0 Urinary tract infection, site not specified; I12.9 Hypertensive chronic kidney disease with stage 1 through stage 4 chronic kidney disease, or unspecified chronic kidney disease; N18.9 Chronic kidney disease, unspecified; Z82.49 Family history of ischemic heart disease and other diseases of the circulatory system; Z79.899 Other long term (current) drug therapy; F41.9 Anxiety disorder, unspecified
CPT/HCPCS: 36415; 71045; 71250; 80048; 80076; 81001; 83690; 83880; 84484; 85025; 87077; 87086; 87186; 87426; 93005; 96374; 99285; J2405; C9803; U0003

== ENCOUNTER 2023-06-22 11:15 | Inpatient (IN) | payer MEDICARE, OTHER ==
[~2023-06-22] VITALS: Ht 144.8 cm; Wt 67.1 kg
[~2023-06-22 11:15] MED LIST changes: -AMIO200T5 PO; +CEPH500C2 PO; -DEXL60CA3 PO; -ERGO500014 PO; -GABA-532 PO; +ICOS1CAP PO; +MELO-107 PO; -ONDA4TAB11 PO; +PANT20TA17 PO; -PANT20TA2 PO
[2023-06-22 11:58] LABS: EOSINOPHILS % (AUTO) 0.6 % (0.0-6.0); HEMATOCRIT 36 % (33-45); LYMPHOCYTES # (AUTO) 0.8 K/uL (0.8-4.8); LYMPHOCYTES % (AUTO) 11.1 % (20.0-44.0); MEAN CORPUSCULAR HEMOGLOBIN 31 PG (26.0-33.0); MEAN CORPUSCULAR HGB CONC 34 g/dl (31.0-36.0); MEAN CORPUSCULAR VOLUME 92 fL (82-100); MONOCYTES # (AUTO) 0.6 K/uL (0.1-1.30); MONOCYTES % (AUTO) 8.5 % (2.0-12.0); NEUTROPHILS # (AUTO) 5.5 K/uL (1.8-8.9); NEUTROPHILS % (AUTO) 79.8 % (43.0-81.0); PLATELET COUNT (AUTO) 187 K/uL (150-450); RED BLOOD CELL COUNT(AUTO) 3.88 MIL/uL (4.0-5.2); RED CELL DISTRIBUTION WIDTH 13.2 % (11.5-15.0); WHITE BLOOD COUNT (AUTO) 6.9 K/uL (4.3-11.0)
[2023-06-22 12:13] LABS: ALANINE AMINOTRANSFERASE 15 U/L (12-78); ALBUMIN 3.6 g/dL (3.4-5.0); ALKALINE PHOSPHATASE 51 U/L (46-116); ASPARTATE AMINOTRANSFERASE 15 U/L (15-37); BILIRUBIN,DIRECT 0.2 mg/dL (0.0-0.2); BILIRUBIN,TOTAL 0.5 mg/dL (0.2-1.0); CALCIUM, SERUM 9.7 mg/dL (8.5-10.1); CARBON DIOXIDE 28 mmol/L (21-32); CHLORIDE 98 mmol/L (98-107); CREATININE 1.6 mg/dL (0.6-1.3); GLUCOSE 103 mg/dL (74-106); POTASSIUM 3.9 mmol/L (3.5-5.1); SODIUM SERUM 135 mmol/L (136-145); TOTAL PROTEIN, SERUM 7.6 g/dL (6.4-8.2); UREA NITROGEN, BLOOD 22 mg/dL (7-18)
[2023-06-22 12:18] LABS: INR 1.08 (0.91-1.10); PARTIAL THROMBOPLASTIN TIME 29.5 SEC (24.3-34.3); PROTHROMBIN TIME 11.4 SECS (9.2-11.1)
[2023-06-22] MEDS ORDERED: CEFTRIAXONE 1GM BAG (ER ONLY) 1 GM/50 ML PIGGYBACK IV ONE (12:30)
[2023-06-22] MEDS ORDERED: AZITHROMYCIN 250 MG TABLET PO ONE (12:30)
[2023-06-22 12:33] LABS: LACTIC ACID 1.3 mmol/L (0.4-2.0)
[2023-06-22] MEDS ORDERED: OMEP1CAP25 PO (12:50)
[2023-06-22] MEDS ORDERED: CLON-418 PO (12:50)
[2023-06-22] MEDS ORDERED: FURO-144 PO (12:50)
[2023-06-22] MEDS ORDERED: TRAZ-182 PO (12:50)
[2023-06-22] MEDS ORDERED: GABA-532 PO (12:50)
[2023-06-22] MEDS ORDERED: NEBI10TA2 PO (12:50)
[2023-06-22] MEDS ORDERED: NITR0.4T48 SL (12:50)
[2023-06-22] MEDS ORDERED: BENA10TA74 PO (12:50)
[2023-06-22] MEDS ORDERED: PROM6.256 PO (12:50)
[2023-06-22] MEDS ORDERED: ALPR0.25 PO (12:50)
[2023-06-22] MEDS ORDERED: KETO120S5 TP (12:50)
[2023-06-22] MEDS ORDERED: ASPI-1420 PO (12:50)
[2023-06-22] MEDS ORDERED: OLOP2.5D6 EACHEYE (12:50)
[2023-06-22] MEDS ORDERED: HYDR453.3 TP (12:50)
[2023-06-22] MEDS ORDERED: AZITHROMYCIN 250 MG TABLET ONE (12:52)
[2023-06-22] MEDS ORDERED: CEFTRIAXONE 1GM BAG (ER ONLY) 50 ML IV ONE (12:52)
[2023-06-22] MEDS ORDERED: MAGNESIUM HYDROXIDE 30 ML UDC PO PRN (13:00)
[2023-06-22] MEDS ORDERED: MAG HYDROX/AL HYDROX/SIMETH 30 ML UDC PO PRN (13:00)
[2023-06-22] MEDS ORDERED: ONDANSETRON HCL/PF 4 MG/2 ML VIAL IVP PRN (13:00)
[2023-06-22] MEDS ORDERED: HYDROCODONE/APAP 5/325MG TABLET PO PRN (13:00)
[2023-06-22] MEDS ORDERED: TEMAZEPAM 15 MG CAPSULE PO PRN (13:00)
[2023-06-22] MEDS ORDERED: Z GUARD REMEDY 4 OZ OINT TP PRN (13:00)
[2023-06-22 13:21] LABS: APPEARANCE,URINE SLIGHTLY CLOUDY (CLEAR); BILIRUBIN,URINE NEGATIVE (NEGATIVE); BLOOD, URINE TRACE-INTA Ery/uL (NEGATIVE); COLOR,URINE YELLOW (YELLOW); KETONES,URINE NEGATIVE (NEGATIVE); LEUKOCYTE ESTERASE ,URINE 1+ (NEGATIVE); NITRITE, URINE POSITIVE (NEGATIVE); PH,URINE 5.5 (5.0-8.0); PROTEIN,URINE NEGATIVE (NEGATIVE); UGLUCOSE NEGATIVE (NEGATIVE); UROBILINOGEN,URINE 0.2 EU/dL (0.2)
[2023-06-22] MEDS ORDERED: IV NS 0.9% 250 ML IV ONE (13:21)
[2023-06-22] MEDS ORDERED: IOHEXOL-350 100 ML VIAL IV ONE (13:21)
[2023-06-22 13:51] LABS: ADD URINE CULTURE YES; BACTERIA,URINE Many /HPF (None Seen); RBC,URINE 0-2 /HPF (0-2); SQUAMOUS EPITHELIAL CELL,UR Few /HPF (None Seen)
[2023-06-22] MEDS: ACETAMINOPHEN 325 MG TABLET PO PRN (22:47)
[2023-06-23] VITALS (8 sets, daily range): BP systolic 101–138; BP diastolic 58–76; TEMP 97.5–99; O2SAT 95–100
[2023-06-23 07:25] LABS: BASOPHILS % (AUTO) 0.1 % (0.0-2.0); EOSINOPHILS # (AUTO) 0.1 K/uL (0.0-0.7); EOSINOPHILS % (AUTO) 1.7 % (0.0-6.0); HEMATOCRIT 33 % (33-45); HEMOGLOBIN 11.1 g/dL (11.5-14.8); LYMPHOCYTES # (AUTO) 0.9 K/uL (0.8-4.8); LYMPHOCYTES % (AUTO) 17.5 % (20.0-44.0); MEAN CORPUSCULAR HEMOGLOBIN 31 PG (26.0-33.0); MEAN CORPUSCULAR HGB CONC 34 g/dl (31.0-36.0); MEAN CORPUSCULAR VOLUME 93 fL (82-100); MONOCYTES # (AUTO) 0.7 K/uL (0.1-1.30); MONOCYTES % (AUTO) 13.5 % (2.0-12.0); NEUTROPHILS # (AUTO) 3.3 K/uL (1.8-8.9); NEUTROPHILS % (AUTO) 67.2 % (43.0-81.0); PLATELET COUNT (AUTO) 164 K/uL (150-450); RED BLOOD CELL COUNT(AUTO) 3.53 MIL/uL (4.0-5.2); RED CELL DISTRIBUTION WIDTH 13.6 % (11.5-15.0); WHITE BLOOD COUNT (AUTO) 4.9 K/uL (4.3-11.0)
[2023-06-23] MEDS: PANTOPRAZOLE 40 MG TABLET.DR PO SCH (07:38)
[2023-06-23 07:56] LABS: CALCIUM, SERUM 9.4 mg/dL (8.5-10.1); CARBON DIOXIDE 27 mmol/L (21-32); CHLORIDE 102 mmol/L (98-107); CREATININE 1.4 mg/dL (0.6-1.3); GLUCOSE 92 mg/dL (74-106); POTASSIUM 3.5 mmol/L (3.5-5.1); SODIUM SERUM 137 mmol/L (136-145); UREA NITROGEN, BLOOD 19 mg/dL (7-18)
[2023-06-23 08:11] LABS: CHOLESTEROL 146 mg/dL (<200); HDL CHOLESTEROL 33 mg/dL (40-60); LDL 95 mg/dL (0-99); THYROID STIMULATING HORMONE 0.821 uIU/mL (0.358-3.74); TRIGLYCERIDES 115 mg/dL (30-150)
[2023-06-23] MEDS: AMLODIPINE BESYLATE 10 MG TABLET PO SCH (08:41)
[2023-06-23 10:12] LABS: APPEARANCE,URINE CLEAR (CLEAR); BILIRUBIN,URINE NEGATIVE (NEGATIVE); BLOOD, URINE NEGATIVE Ery/uL (NEGATIVE); COLOR,URINE YELLOW (YELLOW); KETONES,URINE NEGATIVE (NEGATIVE); LEUKOCYTE ESTERASE ,URINE 1+ (NEGATIVE); NITRITE, URINE NEGATIVE (NEGATIVE); PH,URINE 6.5 (5.0-8.0); PROTEIN,URINE NEGATIVE (NEGATIVE); UGLUCOSE NEGATIVE (NEGATIVE); UROBILINOGEN,URINE 0.2 EU/dL (0.2)
[2023-06-23 10:18] LABS: CREATININE, URINE 68.2 MG/DL (30.0-125.0); URINE TOTAL PROTEIN 32.8 mg/dL (0-11.9)
[2023-06-23] MEDS: ALBUTEROL HALF STRENGTH 1.25 MG/3 ML VIAL.NEB NEB SCH ×3 (10:30→20:19)
[2023-06-23] MEDS: ENOXAPARIN SODIUM 30 MG/0.3 ML DISP.SYRIN SQ SCH (10:53)
[2023-06-23] MEDS: ACETAMINOPHEN 325 MG TABLET PO PRN ×2 (12:04→22:13)
[2023-06-23] MEDS: AZITHROMYCIN 500 MG in IV D5W 250 ML IV SCH (12:04)
[2023-06-23 12:31] LABS: ADD URINE CULTURE YES; BACTERIA,URINE Rare /HPF (None Seen); RBC,URINE NONE SEEN /HPF (0-2); SQUAMOUS EPITHELIAL CELL,UR Rare /HPF (None Seen)
[2023-06-23] MEDS: CEFTRIAXONE 1 G in IV D5W 50 ML IV SCH (13:13)
[2023-06-23 13:24] LABS: EOSINOPHIL,URINE None Seen
[2023-06-23] MEDS ORDERED: ZOLPIDEM TARTRATE 5 MG TABLET PO PRN (21:00)
[2023-06-24] VITALS (12 sets, daily range): BP systolic 122–170; BP diastolic 50–99; TEMP 97.5–98.8; O2SAT 94–100
[2023-06-24] MEDS: ALBUTEROL HALF STRENGTH 1.25 MG/3 ML VIAL.NEB NEB SCH ×3 (02:06→14:09)
[2023-06-24 06:49] LABS: BASOPHILS % (AUTO) 0.1 % (0.0-2.0); EOSINOPHILS # (AUTO) 0.1 K/uL (0.0-0.7); EOSINOPHILS % (AUTO) 1.5 % (0.0-6.0); HEMATOCRIT 32 % (33-45); HEMOGLOBIN 10.9 g/dL (11.5-14.8); LYMPHOCYTES # (AUTO) 0.9 K/uL (0.8-4.8); LYMPHOCYTES % (AUTO) 15.1 % (20.0-44.0); MEAN CORPUSCULAR HEMOGLOBIN 31 PG (26.0-33.0); MEAN CORPUSCULAR HGB CONC 34 g/dl (31.0-36.0); MEAN CORPUSCULAR VOLUME 92 fL (82-100); MONOCYTES # (AUTO) 0.7 K/uL (0.1-1.30); MONOCYTES % (AUTO) 11.3 % (2.0-12.0); NEUTROPHILS # (AUTO) 4.4 K/uL (1.8-8.9); PLATELET COUNT (AUTO) 180 K/uL (150-450); RED CELL DISTRIBUTION WIDTH 13.4 % (11.5-15.0); WHITE BLOOD COUNT (AUTO) 6.1 K/uL (4.3-11.0)
[2023-06-24 07:05] LABS: ALANINE AMINOTRANSFERASE 8 U/L (12-78); ALBUMIN 2.9 g/dL (3.4-5.0); ALKALINE PHOSPHATASE 43 U/L (46-116); ASPARTATE AMINOTRANSFERASE 14 U/L (15-37); BILIRUBIN,TOTAL 0.4 mg/dL (0.2-1.0); CALCIUM, SERUM 9.3 mg/dL (8.5-10.1); CARBON DIOXIDE 28 mmol/L (21-32); CHLORIDE 102 mmol/L (98-107); CREATININE 1.4 mg/dL (0.6-1.3); GLUCOSE 102 mg/dL (74-106); PHOSPHORUS 3.1 mg/dL (2.5-4.9); POTASSIUM 3.4 mmol/L (3.5-5.1); SODIUM SERUM 138 mmol/L (136-145); TOTAL PROTEIN, SERUM 6.7 g/dL (6.4-8.2); UREA NITROGEN, BLOOD 17 mg/dL (7-18)
[2023-06-24 07:07] LABS: CREATINE KINASE, TOTAL 51 U/L (26-192)
[2023-06-24] MEDS: AMLODIPINE BESYLATE 10 MG TABLET PO SCH (08:21)
[2023-06-24] MEDS: PANTOPRAZOLE 40 MG TABLET.DR PO SCH (08:21)
[2023-06-24] MEDS: ENOXAPARIN SODIUM 30 MG/0.3 ML DISP.SYRIN SQ SCH ×2 (08:21→08:55)
[2023-06-24] MEDS ORDERED: POTASSIUM CHLORIDE 20 MEQ POWDER PACKET PO ONE (10:00)
[2023-06-24] MEDS ORDERED: ASPIRIN EC 81 MG TABLET.DR PO SCH (10:00)
[2023-06-24] MEDS: AZITHROMYCIN 500 MG in IV D5W 250 ML IV SCH (12:16)
[2023-06-24] MEDS ORDERED: DOXY-326 PO (12:32)
[2023-06-24] MEDS ORDERED: AZIT250T13 PO (12:32)
[2023-06-24] MEDS ORDERED: PRED20TA PO (12:56)
[2023-06-24] MEDS ORDERED: ALBU8.5H8 INH (12:56)
[2023-06-24] MEDS ORDERED: GABAPENTIN 100 MG CAPSULE PO SCH (13:00)
[2023-06-24] MEDS: CEFTRIAXONE 1 G in IV D5W 50 ML IV SCH (13:21)
[2023-06-24] MEDS ORDERED: CARVEDILOL 6.25 MG TABLET PO SCH (17:00)
[2023-06-24] MEDS ORDERED: TRAZODONE 50 MG TABLET PO SCH (22:00)
[2023-06-25] MEDS ORDERED: BENAZEPRIL HCL 10 MG TABLET PO SCH (09:00)
[2023-06-25] MEDS ORDERED: ALPRAZOLAM 0.25 MG TABLET PO SCH (09:00)
[2023-06-25 11:07] LABS: *SPE A/G RATIO 0.9 (0.7-1.7); *SPE ALBUMIN 2.8 g/dL (2.9-4.4); *SPE ALPHA-1-GLOBULIN 0.3 g/dL (0.0-0.4); *SPE ALPHA-2-GLOBULIN 0.8 g/dL (0.4-1.0); *SPE GLOBULIN, TOTAL 3.2 g/dL (2.2-3.9); *SPE M-SPIKE Not Observed g/dL (Not Observed); *SPEGAMMA GLOBULIN 1.1 g/dL (0.4-1.8); PTH, INTACT 13 pg/mL (15-65)
[2023-06-26] MEDS ORDERED: FUROSEMIDE 40 MG TABLET PO SCH (09:00)
== END 2023-06-24 15:44 | disposition home health service (06) | DRG 193 ==
LOC: ER 11:20 → MEDSG1 14:18 → TELE1 15:54
PROVIDERS: ADMIT Nurse Practitioner Acute Care; ATTEND Nurse Practitioner Acute Care
DX: J15.9 Unspecified bacterial pneumonia (principal); I50.33 Acute on chronic diastolic (congestive) heart failure; N17.0 Acute kidney failure with tubular necrosis; I13.0 Hypertensive heart and chronic kidney disease with heart failure and stage 1 through stage 4 chronic kidney disease, or unspecified chronic kidney disease; J20.9 Acute bronchitis, unspecified; E66.9 Obesity, unspecified; J45.909 Unspecified asthma, uncomplicated; K76.0 Fatty (change of) liver, not elsewhere classified; G47.33 Obstructive sleep apnea (adult) (pediatric); Z68.32 Body mass index [BMI] 32.0-32.9, adult; N18.9 Chronic kidney disease, unspecified; Z90.49 Acquired absence of other specified parts of digestive tract
CPT/HCPCS: 36415; 70220-TC; 71045-TC; 76700-TC; 80048-TC; 80053-TC; 80061-TC; 80076-TC; 81001; 82550-TC; 82570-TC; 83605-TC; 83735-TC; 83970; 84100-TC; 84155; 84165; 84300-TC; 84443-TC; 84484-TC; 85025-TC; 85730-TC; 87040-TC; 87086-TC; 93307-TC; 94799-TC; A4223; C9803; G0378; J0456; J0696; J1650; J7050; J7060; Q9967